=== PATIENT | female | born 1960 | race Caucasian/White ===

== ENCOUNTER → 2016-12-21 | Outpatient (CLI) | payer BC ==
[~2016-12-21] MED LIST: HCTZ 25MG25 MG PO
== END ==
LOC: MC.RAD 13:27
DX: Z12.31 Encounter for screening mammogram for malignant neoplasm of breast (principal)

== ENCOUNTER → 2018-08-01 | Outpatient (CLI) | payer BC | LOC: MC.RAD 07:43 | DX: Z12.31 Encounter for screening mammogram for malignant neoplasm of breast (principal) ==

== ENCOUNTER → 2019-08-28 | Outpatient (CLI) | payer BC | LOC: MC.RAD 07:17 | DX: Z12.31 Encounter for screening mammogram for malignant neoplasm of breast (principal) ==

== ENCOUNTER 2020-06-06 07:31 | Day surgery (SDC) | payer BC ==
[~2020-06-06] VITALS: Ht 162.6 cm; Wt 73.3 kg
[2020-06-06] MEDS ORDERED: NORVASC 10MG10 MG PO (08:16)
[2020-06-06] MEDS ORDERED: HYZAAR 12.5 MG-1 TAB PO (08:17)
[2020-06-06 08:18] VITALS: BP 134/81; PULSE 88; TEMP 97.8
[2020-06-06] MEDS ORDERED: MOBIC15 MG PO (08:18)
[2020-06-06 09:05] VITALS: BP 109/69; PULSE 77; TEMP 97.5
--- NOTE | 2020-06-06 09:05 | NUR ---
TO BAY 4 PER CART FROM ENDOSCOPY. ALERT ORIENTED X3, TALKING TO STAFF AND . AMBULATED TO RECLINER WITH ASSIST AND TOLERATED WELL DR PENALOZA INTO TALK WITH AND PATIENT. RECEIVED CRANBERRY JUICE AND MUFFIN.
[2020-06-06 09:20] VITALS: BP 106/82; PULSE 74
--- NOTE | 2020-06-06 09:20 | NUR ---
ATE 100% AND TOLERATED WELL.
--- NOTE | 2020-06-06 09:30 | NUR ---
RECEIVED DISCHARGE INSTRUCTIONS AND VERBALIZED UNDERSTANDING. DISCONTINUED IV AND INT- CATHETER INTACT.
--- NOTE | 2020-06-06 09:40 | NUR ---
DISCHARGED PER WC BY NURSING STAFF TO PRIVATE CAR IN CARE OF RADHIKA.
== END 2020-06-06 09:55 | disposition home or self-care (01) ==
LOC: SDCO 07:31
DX: Z12.11 Encounter for screening for malignant neoplasm of colon (principal); I10 Essential (primary) hypertension; E78.5 Hyperlipidemia, unspecified; M19.90 Unspecified osteoarthritis, unspecified site; Z88.0 Allergy status to penicillin
CPT/HCPCS: J2704; J7120

== ENCOUNTER → 2021-08-12 | Outpatient (CLI) | payer BC ==
[~2021-08-12] MED LIST changes: +HYZAAR 12.5 MG-1 TAB PO; +MOBIC15 MG PO; +NORVASC 10MG10 MG PO
== END ==
LOC: MC.RAD 08:03
DX: Z12.31 Encounter for screening mammogram for malignant neoplasm of breast (principal)